=== PATIENT | female | born 1955 | race Caucasian/White ===

== ENCOUNTER → 2019-10-08 | Outpatient (CLI) | payer OTHER ==
[~2019-10-08] VITALS: Ht 167.6 cm; Wt 75.0 kg
[~2019-10-08] MED LIST: AMIT10TA PO; BACL-19 PO; ERGO500017 PO; FLUO20CA8 PO; HYDR-36 PO; NATALIZUMAB 300 MG in SODIUM CHLORIDE 0.9% 100 ML IV ONE; TIZA4CAP PO; TOPI100T8 PO; [UNRECOGNIZED DRUG - OTHER] PO
[2019-10-08 10:00] VITALS: BP 122/58
== END | disposition home or self-care (01) ==
LOC: INFUSION 09:59
PROVIDERS: ATTEND Psychiatry & Neurology Neurology
DX: G35 Multiple sclerosis (principal); G43.909 Migraine, unspecified, not intractable, without status migrainosus
CPT/HCPCS: 96365; J2323

== ENCOUNTER 2019-11-05 11:04 | Outpatient (CLI) | payer OTHER ==
[~2019-11-05] VITALS: Ht 167.6 cm; Wt 76.6 kg
[2019-11-05 10:15] VITALS: BP 122/66
== END 2019-11-05 23:59 | disposition home or self-care (01) ==
LOC: INFUSION 11:04
PROVIDERS: ATTEND Psychiatry & Neurology Neurology
DX: G35 Multiple sclerosis (principal); G43.909 Migraine, unspecified, not intractable, without status migrainosus
CPT/HCPCS: 96365; J2323

== ENCOUNTER 2019-12-10 07:24 | Outpatient (CLI) | payer OTHER ==
[~2019-12-10] VITALS: Ht 167.6 cm; Wt 79.5 kg
[~2019-12-10 07:24] MED LIST changes: -NATALIZUMAB 300 MG in SODIUM CHLORIDE 0.9% 100 ML IV ONE
[2019-12-10 10:50] VITALS: BP 114/55
[2019-12-10] MEDS ORDERED: NATALIZUMAB 300 MG in SODIUM CHLORIDE 0.9% 100 ML IV ONE ×2 (11:32→12:00)
== END 2019-12-10 23:59 | disposition home or self-care (01) ==
LOC: INFUSION 07:24
PROVIDERS: ATTEND Psychiatry & Neurology Neurology
DX: G35 Multiple sclerosis (principal)
CPT/HCPCS: 96365; J2323

== ENCOUNTER 2020-01-07 10:22 | Outpatient (CLI) | payer OTHER ==
[~2020-01-07] VITALS: Ht 167.6 cm; Wt 79.2 kg
[~2020-01-07 10:22] MED LIST changes: +FLUO20CA23 PO; -FLUO20CA8 PO
[2020-01-07 10:25] VITALS: BP 100/63
[2020-01-07] MEDS ORDERED: NATALIZUMAB 300 MG in SODIUM CHLORIDE 0.9% 100 ML IV ONE (11:00)
== END 2020-01-07 23:59 | disposition home or self-care (01) ==
LOC: INFUSION 10:22
PROVIDERS: ATTEND Psychiatry & Neurology Neurology
DX: G35 Multiple sclerosis (principal); G43.909 Migraine, unspecified, not intractable, without status migrainosus
CPT/HCPCS: 96365; J2323

== ENCOUNTER → 2020-11-10 | Outpatient (CLI) | payer MEDICARE, OTHER ==
[~2020-11-10] MED LIST changes: +BUSP15TA PO; +ESTR42.53 TP; +HYDR-3246 PO; -HYDR-36 PO; +HYDR25CA94 PO; +LEVO100T74 PO; +NATA300V2 IV; +PRAZ2CAP2 PO; +RED600CA2 PO; +ZOLP10TA PO
== END | disposition home or self-care (01) ==
LOC: CFH 10:11
PROVIDERS: ATTEND Internal Medicine
DX: M85.88 Other specified disorders of bone density and structure, other site (principal); N64.4 Mastodynia; N95.8 Other specified menopausal and perimenopausal disorders
CPT/HCPCS: 76642; 77062; 77080; 77066; G0279